=== PATIENT | female | born 1995 | race American Indian/Alaskan Native ===

== ENCOUNTER 2021-11-16 10:20 | Emergency (ER) | payer MEDICAID ==
[2021-11-16 11:47] VITALS: BP 120/69
[2021-11-16 12:44] LABS: Bilirubin,Urine NEG (Negative); Blood,Urine NEG (Negative); Color,Urine Yellow (Yellow); Protein,Urine <15 mg/dL mg/dL (Negative); Urobilinogen,Urine < 2.0 mg/dL (<2.0)
[2021-11-16 13:19] LABS: HCG Qualitative,Urine Negative (Negative)
--- NOTE | 2021-11-16 14:01 | Emergency Department Report ---
ED Female HPI - General Chief complaint: Urogenital-Female Stated complaint: TEST Time Seen by Provider: 11/16/21 13:09 Source: patient Mode of arrival: Ambulatory Limitations: No Limitations - History of Present Illness Initial comments: 26-year-old black female with no past medical history presents to the emergency department for evaluation of possible . She states that she had her Mirena moved on October 03, 2021, had some spotting few days later, and has not had a. Since then. She states that she it feels like something is moving her stomach and she thinks that she may be . She denies vaginal discharge, dysuria, and abdominal pain. Complaint: other (Possible ) Severity scale (0 -10): 0 Last Menstrual Period: 10/05/21 EDC: 07/12/22 Associated Symptoms: other (States that it feels like something is moving around in her stomach like a baby). denies: vaginal discharge, vaginal bleeding, abdominal pain, fever/chills, headaches, loss of appetite, dysuria, hematuria, rash, seizure, shortness of breath, syncope, weakness - Related Data Sexually active: Yes : 1 Para: 1 Home Medications Medication Instructions Recorded Confirmed Last Taken No Known Home Medications [No 11/16/21 11/16/21 Unknown Reported Home Medications] Allergies Allergy/AdvReac Type Severity Reaction Status Date / Time No Known Allergies Allergy Verified 11/16/21 11:41 ED Review of Systems ROS: Stated complaint: TEST Other details as noted in HPI Comment: All other systems reviewed and negative Constitutional: denies: chills, fever Respiratory: denies: cough, shortness of breath, SOB with exertion, SOB at rest Cardiovascular: denies: chest pain, palpitations Gastrointestinal: denies: abdominal pain, nausea, vomiting, diarrhea, hematemesis, melena, hematochezia Genitourinary: denies: urgency, dysuria, frequency, hematuria, discharge Musculoskeletal: denies: back pain Skin: denies: rash, lesions Neurological: denies: headache, weakness ED Past Medical Hx - Past Medical History Previous Medical History?: No - Surgical History Past Surgical History?: No - Social History Smoking Status: Current Every Day Smoker Substance Use Type: None - Medications Home Medications: Home Medications Medication Instructions Recorded Confirmed Last Taken Type No Known Home Medications [No 11/16/21 11/16/21 Unknown History Reported Home Medications] ED Physical Exam - General Limitations: No Limitations General appearance: alert, in no apparent distress - Head Head exam: Present: atraumatic, normocephalic - Eye Eye exam: Present: normal appearance. Absent: conjunctival injection - Neck Neck exam: Present: normal inspection. Absent: tenderness - Respiratory Respiratory exam: Present: normal lung sounds bilaterally. Absent: respiratory distress, wheezes, rales, rhonchi, stridor, chest wall tenderness - Cardiovascular Cardiovascular Exam: Present: regular rate, normal heart sounds - GI/Abdominal GI/Abdominal exam: Present: soft, normal bowel sounds. Absent: distended, tenderness, guarding, rebound, rigid - Extremities Exam Extremities exam: Present: normal inspection - Back Exam Back exam: Present: normal inspection. Absent: CVA tenderness (R), CVA tenderness (L) - Neurological Exam Neurological exam: Present: alert, oriented X3, normal gait - Psychiatric Psychiatric exam: Present: normal affect, normal mood - Skin Skin exam: Present: warm, dry, intact, normal color ED Course Vital Signs 11/16/21 11:37 Temperature 98.2 F Pulse Rate 70 Respiratory 16 Rate Blood Pressure 120/69 O2 Sat by Pulse 100 Oximetry ED Medical Decision Making - Medical Decision Making 26-year-old black female with no past medical history presents to the emergency department for evaluation of possible . She states that she had her Mirena moved on October 03, 2021, had some spotting few days later, and has not had a. Since then. She states that she it feels like something is moving her stomach and she thinks that she may be . She denies vaginal discharge, dysuria, and abdominal pain Urine test negative and urine negative for UTI. Patient is advised that missed menstrual cycle could be secondary to recent removal of Mirena and she should follow-up with [facility] for further evaluation and management. She verbalized understanding of and agreement with plan of care. Critical care attestation.: If time is entered above; I have spent that time in minutes in the direct care of this critically ill patient, excluding procedure time. ED Disposition Clinical Impression: Missed period Disposition: HOME / SELF CARE / HOMELESS Is pt being admited?: No Does the pt Need Aspirin: No Condition: Stable Instructions: Secondary Amenorrhea, Primary Amenorrhea Additional Instructions: Follow-up with [facility] for further evaluation and management. Referrals: DONNELL SALAMANCA MD [Primary Care Provider] - 3-5 Days Time of Disposition: 14:00
== END 2021-11-16 15:08 | disposition home or self-care (01) ==
LOC: ED 10:20
DX: N92.6 Irregular menstruation, unspecified (principal); F17.200 Nicotine dependence, unspecified, uncomplicated
CPT/HCPCS: 81001; 81025; 99283